=== PATIENT | male | born 1975 | race Asian ===

== ENCOUNTER 2019-07-31 14:51 | Emergency (ER) | payer OTHER ==
[~2019-07-31] VITALS: Ht 182.9 cm; Wt 109.1 kg
[2019-07-31] MEDS ORDERED: SOD CHLORIDE 0.9% 1,000 ML IV STA (14:59)
[2019-07-31 15:20] VITALS: Ht 182.9 cm; Wt 109.1 kg
[2019-07-31] MEDS ORDERED: morphine 4 MG/ML VIAL IV STA (16:09)
[2019-07-31 16:26] VITALS: BP 144/91; PULSE 72; RESP 20
== END 2019-07-31 18:29 | disposition home or self-care (01) ==
LOC: E/R 14:51
DX: G89.18 Other acute postprocedural pain (principal); R40.2132 Coma scale, eyes open, to sound, at arrival to emergency department; R40.2352 Coma scale, best motor response, localizes pain, at arrival to emergency department; R40.2252 Coma scale, best verbal response, oriented, at arrival to emergency department; R06.02 Shortness of breath
CPT/HCPCS: 36415; 70450; 71045; 80053; 80307; 82962; 83605; 85025; 93005; 96374; J2270; J7030; Z7502